=== PATIENT | male | born 1970 | race Caucasian/White ===

== ENCOUNTER 2016-09-21 07:51 | Emergency (ER) | payer MEDICAID, OTHER ==
[~2016-09-21] VITALS: Ht 162.6 cm; Wt 72.7 kg
[2016-09-21] MEDS ORDERED: KETOROLAC 30 MG INJ IV STA (08:03)
[2016-09-21 08:37] VITALS: BP 133/95; PULSE 70; RESP 11; TEMP 97.7; Ht 162.6 cm; Wt 72.7 kg
[2016-09-21] MEDS ORDERED: PROPOFOL 200 MG INJ IV ONE (09:00)
--- NOTE | 2016-09-21 09:04 | RADRPT ---
PROCEDURE: XR Shoulder. CLINICAL INDICATION: Left shoulder pain. TECHNIQUE: 4 views of the right shoulder are available for review. COMPARISON: None available FINDINGS: There is anterior inferior dislocation of the left glenohumeral joint. There is no obvious fracture or imaging is required after relocation. There are mild degenerative change of the left acromioclav icular joint which is otherwise intact. The visualized portions of the right chest wall are grossly unremarkable. The soft tissues are within normal limits. IMPRESSION: 1. Anterior inferior dislocation of the left glenohumeral joint . RPTAT: KK .Ziyad Jim MD, MD Date Time Electronically viewed and signed by .Ziyad Jim MD, on 09/21/2016 09:04 .B/
[2016-09-21] MEDS ORDERED: NAPR-688 PO (10:42)
--- NOTE | 2016-09-21 11:15 | RADRPT ---
PROCEDURE: XR Shoulder. CLINICAL INDICATION: Post reduction TECHNIQUE: Frontal and transscapular views of the left shoulder are available for review. COMPARISON: Radiographs of the same day. FINDINGS: The humeral head appears grossly located, although evaluation is limited on the transscapular projec tion due to position. There is lack of and externally rotated view limiting evaluation of the great er tuberosity. The visualized portions of the left chest are clear. IMPRESSION: 1. Grossly located glenohumeral joint, consider an axillary view or CT for confirmation if clinical suspicion for persistent dislocation persist. 2. Moderate AC joint arthrosis. RPTAT: UU .Migel Rojo MD, MD Date Time Electronically viewed and signed by .Migel Rojo MD, on 09/21/2016 11:15 .d/
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
== END 2016-09-21 11:45 | disposition home or self-care (01) ==
LOC: E/R 07:51
DX: S43.015A Anterior dislocation of left humerus, initial encounter (principal); V18.4XXA Pedal cycle driver injured in noncollision transport accident in traffic accident, initial encounter
CPT/HCPCS: 23650; 73020; 73030; 96374; J1885; Z7502; Z7610

== ENCOUNTER 2016-09-21 12:19 | Emergency (ER) | payer MEDICAID ==
[~2016-09-21] VITALS: Ht 162.6 cm; Wt 76.0 kg
[~2016-09-21 12:19] MED LIST: NAPR-688 PO
[2016-09-21 12:31] VITALS: Ht 162.6 cm; Wt 76.0 kg
--- NOTE | 2016-09-21 12:57 | ERD ---
ER Documentation Chief Complaint Date/Time DATE: 09/21/16 TIME: 12:57 Chief Complaint LEFT SHOULDER PAIN HPI Patient is a 46-year-old male with recent shoulder dislocation who presents with left-sided shoulder pain. He was just seen in the emergency department recently and had a shoulder dislocation reduction done at the bedside. He had a shoulder immobilizer placed but when he went out of the emergency department he tried to put a shirt on and put his arm over his head and the left shoulder "pop back out". He said that he is right-handed. He did take Vicodin for pain. The pain is sharp in nature and constant. ROS All systems reviewed and are negative except as per history of present illness. Medications Home Meds Discontinued Scripts Naproxen* (Naproxen*) 500 Mg Tablet, 500 MG PO BID Y for PAIN, #20 TAB Prov:CHLOE AGUILERA DO 09/21/16 Allergies Allergies: Coded Allergies: No Known Allergy (Unverified , 09/21/16) PMhx/Soc Medical and Surgical Hx: pt denies Medical Hx History of Surgery: No Anesthesia Reaction: No Hx Neurological Disorder: No Hx Respiratory Disorders: No Hx Cardiac Disorders: No Hx Psychiatric Problems: No Hx Miscellaneous Medical Probl: No Hx Alcohol Use: No Hx Substance Use: No Hx Tobacco Use: No Smoking Status: Never smoker FmHx Family History: No diabetes Physical Exam Vitals Vital Signs Date Time Temp Pulse Resp B/P Pulse Ox O2 Delivery O2 Flow Rate FiO2 09/21/16 12:31 98.3 82 18 145/83 99 Physical Exam Const: Moderate distress secondary to pain Head: Atraumatic Eyes: Normal Conjunctiva ENT: Normal External Ears, Nose and Mouth. Neck: Full range of motion..~ No meningismus. Resp: Clear to auscultation bilaterally Cardio: Regular rate and rhythm, no murmurs Abd: Soft, non tender, non distended. Normal bowel sounds Skin: No petechiae or rashes Back: No midline or flank tenderness Ext: Left shoulder dislocation with good pulses Neur: Awake and alert Psych: Normal Mood and Affect Results 24 hrs Current Medications Medications (Trade) Dose Ordered Sig/Juni Route PRN Reason Start Time Stop Time Status Last Admin Dose Admin Ibuprofen (Motrin) 600 mg ONCE ONCE PO 09/21/16 13:00 09/21/16 13:01 DC 09/21/16 12:54 Propofol (Diprivan) 200 mg ONCE STAT IV 09/21/16 13:03 09/21/16 13:06 DC 09/21/16 13:23 Hydromorphone HCl (Dilaudid) 1 mg ONCE STAT IV 09/21/16 13:03 09/21/16 13:06 DC 09/21/16 13:24 Ondansetron HCl 4 mg 4 mg ONCE STAT IV 09/21/16 13:03 09/21/16 13:06 DC 09/21/16 13:23 Sodium Chloride (NS) 1,000 ml @ 1,000 mls/hr Q1H STAT IV 09/21/16 13:03 09/21/16 14:02 DC 09/21/16 13:24 Hydromorphone HCl (Dilaudid) 1 mg ONCE STAT IV 09/21/16 14:47 09/21/16 14:48 DC Lorazepam (Ativan) 2 mg STK-MED ONCE .ROUTE 09/21/16 14:50 09/21/16 14:51 DC Procedures/MDM X-ray Shoulder 3V Interpreted by me: Bones: No fracture Joints: Anterior dislocation of the glenohumeral joint Foreign body: None Procedural Sedation: Pre-assessment performed. See preceding complete history and physical for details. Time out performed. See sedation documentation for details. Medication(s): Propofol 120 milligrams IV Complications: No hypoxic or apneic events Recovered without incident. Greater than 15 minutes of face to face time included in sedation and recovery. Shoulder Reduction by me: Anesthesia: Propofol Location: Left shoulder Technique: Traction countertraction Results: Orthodox of normal anatomic positioning Compl: Neurovascularly intact post procedure. Splint Note Type: Shoulder immobilizer Location: Left shoulder Indication: Shoulder dislocation Splint Assessment: Neurovascularly intact post splint placement with good fit. Post-reduction X-ray Shoulder 3V Interpreted by me: Bones: Successful reduction without fracture Joints: Relocation of previously noted dislocation Foreign body: None Departure Diagnosis: Primary Impression: Dislocation of left shoulder joint Encounter type: initial encounter Qualified Code: S43.005A - Dislocation of left shoulder joint, initial encounter Condition: MARVIN Schneider MD Sep 21, 2016 12:57
[2016-09-21] MEDS ORDERED: IBUPROFEN 600 MG TAB PO ONE (13:00)
[2016-09-21] MEDS ORDERED: PROPOFOL 200 MG INJ IV STA (13:03)
[2016-09-21] MEDS ORDERED: ONDANSETRON 4 MG INJ IV STA ×2 (13:03→16:11)
[2016-09-21] MEDS ORDERED: HYDROmorphONE 1 MG/ML SYG IV STA ×2 (13:03→14:47)
[2016-09-21] MEDS ORDERED: SOD CHLORIDE 0.9% 1,000 ML IV STA (13:03)
--- NOTE | 2016-09-21 13:09 | RADRPT ---
PROCEDURE: Left Shoulder Series CLINICAL INDICATION: Left shoulder pain TECHNIQUE: Two views of the left shoulder are available for review. COMPARISON: None available FINDINGS: There is anterior inferior dislocation of the left glenohumeral joint.. No obvious fractures identi fied. There is mild degenerative change of the left acromioclavicular joint which is otherwise inta ct. The visualized portions of the left chest wall are within normal limits. The soft tissues are u nremarkable. IMPRESSION: 1. Anterior inferior dislocation of the left glenohumeral joint. RPTAT: KK .Ziyad Jim MD, MD Date Time Electronically viewed and signed by .Ziyad Jim MD, on 09/21/2016 13:09 .B/
[2016-09-21] MEDS ORDERED: LORAZEPAM 2 MG INJ ONE (14:50)
--- NOTE | 2016-09-21 15:24 | RADRPT ---
PROCEDURE: Left Shoulder Series CLINICAL INDICATION: Post reduction TECHNIQUE: Two views of the left shoulder are available for review. COMPARISON: None available FINDINGS: There has been interval reduction of left anterior inferior shoulder dislocation.. Alignment is now anatomic. There is no definite fracture. The acromioclavicular joint is within normal limits. The visualized portions of the left chest wall are within normal limits. The soft tissues are unremark able. IMPRESSION: 1. Interval reduction of left anterior inferior shoulder dislocation. RPTAT: KK .Ziyad Jim MD, MD Date Time Electronically viewed and signed by .Ziyad Jim MD, on 09/21/2016 15:23 .B/
[2016-09-21] MEDS ORDERED: NALOXONE (0.4 MG/ML) INJ IV ONE (17:30)
[2016-09-21] MEDS ORDERED: ONDANSETRON (ODT) 4 MG TAB ODT STA (17:57)
[2016-09-21] MEDS ORDERED: MECLIZINE 12.5 MG TAB PO ONE (18:00)
[2016-09-21 18:33] VITALS: BP 145/69; PULSE 66; RESP 18; TEMP 97.1
== END 2016-09-21 18:37 | disposition home or self-care (01) ==
LOC: FTE 12:19 → E/R 18:37
DX: S43.015A Anterior dislocation of left humerus, initial encounter (principal); X50.9XXA Other and unspecified overexertion or strenuous movements or postures, initial encounter; Y92.9 Unspecified place or not applicable
CPT/HCPCS: 23650; 73030; 96374; 96375; 96376; J1170; J2060; J2310; J2405; J7030; Z7502; Z7610

== ENCOUNTER 2016-12-21 09:48 | Emergency (ER) | payer SELFPAY ==
[~2016-12-21] VITALS: Ht 157.5 cm; Wt 68.0 kg
[2016-12-21] MEDS ORDERED: PROPOFOL 200 MG INJ IV STA (09:58)
[2016-12-21] MEDS ORDERED: ONDANSETRON 4 MG INJ IV STA (09:58)
[2016-12-21] MEDS ORDERED: HYDROmorphONE 1 MG/ML SYG IV STA (09:58)
[2016-12-21 10:16] VITALS: Ht 157.5 cm; Wt 68.0 kg
--- NOTE | 2016-12-21 11:18 | RADRPT ---
PROCEDURE: Left shoulder series CLINICAL INDICATION: Pain. TECHNIQUE: 2 views. AP and Y-view COMPARISON: 09/21/2016 FINDINGS: No fractures are noted. Anterior dislocation of the left shoulder is noted. IMPRESSION: 1. Anterior dislocation of the left shoulder. RPTAT: HGSG .Leonidas Pierre MD, Date Time Electronically viewed and signed by .Leonidas Pierre MD, on 12/21/2016 11:17 .G/
[2016-12-21] MEDS ORDERED: IBUP-1542 PO (12:04)
--- NOTE | 2016-12-21 12:09 | RADRPT ---
PROCEDURE: Left shoulder 2 views CLINICAL INDICATION: Status post left shoulder reduction. . TECHNIQUE: AP and transscapular Y views of the left shoulder were obtained COMPARISON: December 21, 2016 at 10:08 p.m. FINDINGS: There has been interval reduction of the left shoulder. The osseous structures appear in anatomic al ignment. The osseous structures appear intact. No destructive bony lesions are observed. Mild narro wing of the acromioclavicular joint is seen. Soft tissues are unremarkable. IMPRESSION: Normal left shoulder reduction. Osseous structures appear in anatomic alignment. Mild degenerative change of the acromioclavicular joint. If there is high clinical suspicion for bony traumatic injury, further evaluation with CT should be considered. RPTAT: AA .Rosalio Marie MD, Date Time Electronically viewed and signed by .Rosalio Marie MD, on 12/21/2016 12:08 .P/
[2016-12-21 12:43] VITALS: BP 122/73; PULSE 62; RESP 18; TEMP 98
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
== END 2016-12-21 17:09 | disposition home or self-care (01) ==
LOC: E/R 09:48
DX: S43.015A Anterior dislocation of left humerus, initial encounter (principal); R40.2142 Coma scale, eyes open, spontaneous, at arrival to emergency department; R40.2252 Coma scale, best verbal response, oriented, at arrival to emergency department; R40.2362 Coma scale, best motor response, obeys commands, at arrival to emergency department; X58.XXXA Exposure to other specified factors, initial encounter; Y92.9 Unspecified place or not applicable
CPT/HCPCS: 23650; 73030; 94770; 96374; 96375; 99285; J1170; J2405